=== PATIENT | male | born 1985 | race Caucasian/White ===

== ENCOUNTER 2024-03-22 20:44 | Emergency (ER) | payer OTHER, MEDICAID ==
[~2024-03-22] VITALS: Ht 170.2 cm; Wt 93.0 kg
[2024-03-22] MEDS ORDERED: CLINDAMYCIN 900 MG/6 ML VIAL ONE (21:34)
[2024-03-22] MEDS: CLINDAMYCIN PHOSPHATE IV 600 MG/4 ML VIAL IV ONE (21:48)
[2024-03-22 21:53] LABS: BASOPHILS % (AUTO) 0.8 % (0.0-2.0); EOSINOPHILS # (AUTO) 0.3 K/uL (0.0-0.7); HEMATOCRIT 47 % (39-51); LYMPHOCYTES # (AUTO) 2.2 K/uL (0.8-4.8); LYMPHOCYTES % (AUTO) 34.7 % (20.0-44.0); MEAN CORPUSCULAR HEMOGLOBIN 29 PG (26.0-33.0); MEAN CORPUSCULAR HGB CONC 34 g/dl (31.0-36.0); MEAN CORPUSCULAR VOLUME 85 fL (80-96); MONOCYTES # (AUTO) 0.8 K/uL (0.1-1.30); MONOCYTES % (AUTO) 12.4 % (2.0-12.0); NEUTROPHILS % (AUTO) 47.1 % (43.0-81.0); PLATELET COUNT (AUTO) 225 K/uL (150-450); RED BLOOD CELL COUNT(AUTO) 5.54 MIL/uL (4.5-6.0); RED CELL DISTRIBUTION WIDTH 13.7 % (11.5-15.0); WHITE BLOOD COUNT (AUTO) 6.3 K/uL (4.3-11.0)
[2024-03-22 22:18] LABS: ALBUMIN 3.6 g/dL (3.4-5.0); BILIRUBIN,TOTAL 0.4 mg/dL (0.2-1.0); CALCIUM, SERUM 9.2 mg/dL (8.5-10.1); CREATININE 0.8 mg/dL (0.6-1.3); POTASSIUM 3.5 mmol/L (3.5-5.1); TOTAL PROTEIN, SERUM 7.6 g/dL (6.4-8.2)
[2024-03-22] MEDS ORDERED: CT SWABBABLE VALVE TRANS SET 1 EA INFUS.SET MC ONE (22:38)
[2024-03-22] MEDS ORDERED: IOHEXOL-300 100 ML VIAL IV ONE (22:38)
[2024-03-22] MEDS ORDERED: IV NS 0.9% 250 ML IV ONE (22:38)
[2024-03-22 22:40] LABS: APPEARANCE,URINE CLEAR (CLEAR); BILIRUBIN,URINE NEGATIVE (NEGATIVE); BLOOD, URINE 1+ Ery/uL (NEGATIVE); COLOR,URINE YELLOW (YELLOW); KETONES,URINE NEGATIVE (NEGATIVE); LEUKOCYTE ESTERASE ,URINE NEGATIVE (NEGATIVE); NITRITE, URINE NEGATIVE (NEGATIVE); UGLUCOSE NEGATIVE (NEGATIVE); UROBILINOGEN,URINE 0.2 EU/dL (0.2)
[2024-03-22 22:57] LABS: PROTEIN,URINE TRACE mg/dl (NEGATIVE)
[2024-03-22 23:02] LABS: AMPHETAMINE, URINE NEGATIVE (NEGATIVE); BARBITURATE, URINE NEGATIVE (NEGATIVE); BENZODIAZEPINE, URINE NEGATIVE (NEGATIVE); CANNABINOID, URINE NEGATIVE (NEGATIVE); COCCAINE, URINE NEGATIVE (NEGATIVE); OPIATE, URINE NEGATIVE (NEGATIVE); PHENCYCLIDINE SCREEN,URINE NEGATIVE (NEGATIVE)
[2024-03-22 23:46] VITALS: BP 145/98; TEMP 98; O2SAT 99
[2024-03-22] MEDS ORDERED: CLIN150C16 PO (23:46)
[2024-03-23 00:10] LABS: ADD URINE CULTURE NO; BACTERIA,URINE None seen /HPF (None Seen); HYALINE CASTS, URINE Few /LPF (None Seen); MUCUS,URINE Few /LPF (None Seen); SQUAMOUS EPITHELIAL CELL,UR None Seen /HPF (None Seen); URIC ACID CRYSTALS,URINE Moderate /HPF (None Seen); WBC,URINE NONE SEEN /HPF (0-3)
== END 2024-03-22 23:47 | disposition left against medical advice (07) ==
LOC: ER 20:54
DX: L02.214 Cutaneous abscess of groin (principal); J40 Bronchitis, not specified as acute or chronic; Z20.822 Contact with and (suspected) exposure to COVID-19
CPT/HCPCS: 99285; 74177; 96374; 71045; 87426; 87804 ×2; 76882; 85025; 87040; 81001; 36415; 80053; 80307; J3490; J7030; J7050; Q9967